=== PATIENT | female | born 1955 | race Caucasian/White ===

== ENCOUNTER 2019-12-06 14:30 | Emergency (ER) | payer MEDICARE, BC ==
[2019-12-06 14:42] VITALS: RESP 18
--- NOTE | 2019-12-06 14:44 | ED ---
Fall HPI - General Chief Complaint: Fall Stated Complaint: possible concussion 11 days ago Time Seen by Provider: 12/06/19 14:43 Source: patient Mode of arrival: ambulatory - History of Present Illness Initial Comments: Patient is 64-year-old female presenting to emergency Department with the chief complaint of a fall. Patient states the incident occurred about 11 days ago, wh en she tried to kick a ball and she lost her balance falling backwards. Patient reports fell on her Botox. States she is sore at her tailbone but denies any swelling to the region. He states there is pain whenever she attempts to sit down. Patient also reports feeling groggy since the fall. States she occasionally takes more time for her to think of the right word. Denies any one-sided weakness or paresthesias. Denies any visual changes or headaches. States she is not on blood thinners. She denies loss of consciousness time of injury. - Related Data Allergies Allergy/AdvReac Type Severity Reaction Status Date / Time pantoprazole [From Protonix] Allergy Rash/Hives Verified 12/06/19 14:42 Review of Systems ROS Statement: Those systems with pertinent positive or pertinent negative responses have been documented in the HPI. ROS Other: All systems not noted in ROS Statement are negative. Past Medical History Past Medical History: Thyroid Disorder Additional Past Medical History / Comment(s): Myesthenia Gravis History of Any Multi-Drug Resistant Organisms: None Reported Past Surgical History: Cholecystectomy, Hysterectomy, Tonsillectomy Additional Past Surgical History / Comment(s): Thyroidectomy, breast reconstruction Past Psychological History: No Psychological Hx Reported Smoking Status: Never smoker Past Alcohol Use History: None Reported Past Drug Use History: None Reported General Exam Limitations: no limitations General appearance: alert, in no apparent distress Head exam: Present: atraumatic, normocephalic, normal inspection. Absent: other (Negative Whaley sign, negative hemotympanum, negative raccoon eyes.) Eye exam: Present: normal appearance, PERRL, EOMI Pupils: Present: normal accommodation ENT exam: Present: normal exam, normal oropharynx, mucous membranes moist Neck exam: Present: normal inspection, full ROM. Absent: tenderness Respiratory exam: Present: normal lung sounds bilaterally. Absent: respiratory distress, wheezes, rales Cardiovascular Exam: Present: regular rate, normal rhythm, normal heart sounds GI/Abdominal exam: Present: soft. Absent: distended, tenderness, guarding Extremities exam: Present: normal inspection, full ROM Back exam: Present: normal inspection, full ROM, tenderness (Mild tenderness at the coccyx). Absent: CVA tenderness (R), CVA tenderness (L) Neurological exam: Present: alert, oriented X3, CN II-XII intact, normal gait Psychiatric exam: Present: normal affect, normal mood Skin exam: Present: warm, dry, intact, normal color Course Vital Signs 12/06/19 12/06/19 14:35 16:20 Temperature 97.9 F 98.5 F Pulse Rate 89 81 Respiratory 18 18 Rate Blood Pressure 150/85 148/80 O2 Sat by Pulse 97 98 Oximetry Medical Decision Making - Medical Decision Making Patient is 64-year-old female resenting to emergency Department with a chief complaint of fall. Incident occurred about 11 days ago. Exam she has some coccygeal pain. Also pain with sitting. Neurological examination is unremarkable. Brain CT shows no signs of intracranial hemorrhage, fractures or dislocations. X-ray of the coccyx reveals no signs of acute injury but the distal end of the coccyx cannot be identified. I suspect the patient suffered a mild concussion when the incident occurred and is not experiencing occasional mild postconcussive symptoms. Return parameters were thoroughly discussed the patient was understanding and agreeable. Case discussed with physician. Disposition Clinical Impression: Fall, Coccygeal pain Disposition: HOME SELF-CARE Condition: Stable Instructions (If sedation given, give patient instructions): Fall Prevention (ED) Additional Instructions: Follow-up with your primary care. Return to emergency department if symptoms worsen. Is patient prescribed a controlled substance at d/c from ED?: No Referrals: Nonstaff,Physician [Primary Care Provider] - 1-2 days Time of Disposition: 16:10
--- NOTE | 2019-12-06 15:41 | XR ---
EXAMINATION TYPE: XR sacrum coccyx DATE OF EXAM: 12/06/2019 COMPARISON: None HISTORY: Fall, pain TECHNIQUE: Three-view sacrum and coccyx FINDINGS: Sacroiliac joints have mild degenerative change. No acute fractures identified. The distal coccyx is poorly visualized is loss of the cortex. Correlate for prior trauma or osteomyelitis. IMPRESSION: 1. No displaced fractures evident. 2. Distal coccyx and distal coccygeal cortex are not identified. Correlate for prior surgery or osteo myelitis.
--- NOTE | 2019-12-06 15:45 | CT ---
EXAMINATION TYPE: CT brain jas wo con DATE OF EXAM: 12/06/2019 COMPARISON: None HISTORY: 64-year-old female Fall 11 days ago. Posterior head injury. Neck pain. CT DLP: 1289.2 mGycm Automated exposure control for dose reduction was used. Technique: Examination of the head was done in axial plane without intravenous contrast. Coronal and sagittal reconstructions performed. CT of the cervical spine was obtained in axial plane without intravenous injection of contrast mater ial. Coronal and sagittal reformatted images were obtained from the axial views for evaluation of f ractures, spinal alignment and canal. FINDINGS: Head: There is no evidence of acute intracranial hemorrhage, acute ischemic changes, mass, mass-effect, or extra-axial fluid collection. There is no effacement of cerebral sulci or basal subarachnoid cister ns. There is no hydrocephalus. There is no midline shift. Hays-white matter distinction is preserv ed. Mild bifrontal atrophy. Mild patchy white matter hypodensity suggesting changes of chronic small vess el ischemic disease. Paranasal sinuses and mastoid air cells well pneumatized. Orbits and globes are intact. No calvarial fracture. Cervical spine: No craniocervical junction anomaly, predental space widening, or prevertebral soft tissue swelling. Moderate to advanced disc/endplate degenerative change at C4-C7 levels. Disc osteophyte complex at C4 -C5 causes a mild to moderate spinal canal stenosis. Reversal of the normal cervical lordosis but with preserved alignment. Advanced hypertrophic uncovertebral joint arthropathy throughout. Advanced hypertrophic facet arthrop athy particularly at C7-T1. No acute fracture of the cervical spine. Variable mild neuroforaminal narrowing, moderate on the right at C4-C5. Sagittal and coronal reformatted images confirm above findings. COMBINED IMPRESSION: 1. Mild bifrontal atrophy and mild changes of chronic small vessel ischemic disease. No acute intracr anial abnormality seen. 2. No acute fracture or malalignment of the cervical spine. Moderate spondylotic change as above.
[2019-12-06 16:22] VITALS: BP 148/80; PULSE 81; TEMP 98.5
== END 2019-12-06 16:20 | disposition home or self-care (01) ==
LOC: EC 14:30
DX: S39.82XA Other specified injuries of lower back, initial encounter (principal); S09.90XA Unspecified injury of head, initial encounter; Z88.8 Allergy status to other drugs, medicaments and biological substances; W18.39XA Other fall on same level, initial encounter; Y93.89 Activity, other specified
CPT/HCPCS: 70450; 72125; 72220; 99284

== ENCOUNTER → 2021-08-03 | Outpatient (CLI) | payer MEDICARE, BC ==
--- NOTE | 2021-08-03 13:33 | US ---
EXAMINATION TYPE: US thyroid st tissue head/neck DATE OF EXAM: 08/03/2021 COMPARISON: NONE CLINICAL HISTORY: 66-year-old female Z85.850 Personal history of malignant neoplasm. TECHNIQUE: Multiple sonographic images of the thyroidectomy bed are obtained. FINDINGS: MEASUREMENTS: GLAND SIZE: Patient had thyroidectomy in 2014. She believes there to be residual tissue. NODULES RIGHT: # of nodules measured on right: 0 LEFT: # of nodules measured on left: 0 ISTHMUS: # of nodules measured within isthmus: 0 Bilateral neck scanned, no evidence of lymphadenopathy. IMPRESSION: Status post thyroidectomy. No appreciable residual tissue in the thyroidectomy bed. No suspicious nod ules. Ongoing appropriate follow-up as clinically indicated.
== END | disposition home or self-care (01) ==
LOC: RADUSWWP 10:39
DX: Z08 Encounter for follow-up examination after completed treatment for malignant neoplasm (principal); Z85.850 Personal history of malignant neoplasm of thyroid
CPT/HCPCS: 76536

== ENCOUNTER 2022-05-02 11:34 | Emergency (ER) | payer MEDICARE ==
--- NOTE | 2022-05-02 12:30 | ED ---
General Adult HPI - General Chief complaint: Recheck/Abnormal Lab/Rx Stated complaint: Hypertension Time Seen by Provider: 05/02/22 11:45 Source: patient, RN notes reviewed, old records reviewed Mode of arrival: ambulatory Limitations: no limitations - History of Present Illness Initial comments: This is a 66-year-old female with past medical history significant for hypertension. Patient states her blood pressure is elevated and recently was switched from atenolol to metoprolol and her blood pressures been running systolically in the 180s. Patient states she's had no symptoms currently no chest pain or palpitations or difficulty breathing. Patient denies any headache patient denies any blurred vision. Patient states she's just concerned because he continues to be elevated. Patient states yesterday she had a little chest tightness that lasted for short period time but hasn't had it occur since - Related Data Allergies Allergy/AdvReac Type Severity Reaction Status Date / Time pantoprazole [From Protonix] Allergy Rash/Hives Verified 05/02/22 11:48 Review of Systems ROS Statement: Those systems with pertinent positive or pertinent negative responses have been documented in the HPI. ROS Other: All systems not noted in ROS Statement are negative. Past Medical History Past Medical History: Hypertension, Thyroid Disorder Additional Past Medical History / Comment(s): Myesthenia Gravis History of Any Multi-Drug Resistant Organisms: None Reported Past Surgical History: Cholecystectomy, Hysterectomy, Tonsillectomy Additional Past Surgical History / Comment(s): Thyroidectomy, breast reconstruction Past Psychological History: No Psychological Hx Reported Past Alcohol Use History: None Reported Past Drug Use History: None Reported General Exam - General Exam Comments Initial Comments: GENERAL: Patient is well-developed and well-nourished. Patient is nontoxic and well- hydrated and is in no acute distress. ENT: Neck is soft and supple. No significant lymphadenopathy is noted. Oropharynx is clear. Moist mucous membranes. Neck has full range of motion without eliciting any pain. EYES: The sclera were anicteric and conjunctiva were pink and moist. Extraocular movements were intact and pupils were equal round and reactive to light. Eyelids were unremarkable. PULMONARY: Unlabored respirations. Good breath sounds bilaterally. No audible rales rhonchi or wheezing was noted. CARDIOVASCULAR: There is a regular rate and rhythm without any murmurs gallops or rubs. ABDOMEN: Soft and nontender with normal bowel sounds. SKIN: Skin is clear with no lesions or rashes and otherwise unremarkable. NEUROLOGIC: Patient is alert and oriented x3. Cranial nerves II through XII are grossly intact. Motor and sensory are also intact. Normal speech, volume and content. Symmetrical smile. MUSCULOSKELETAL: Normal extremities with adequate strength and full range of motion. LYMPHATICS: No significant lymphadenopathy is noted PSYCHIATRIC: Normal psychiatric evaluation. Limitations: no limitations Course Vital Signs 05/02/22 05/02/22 11:43 13:18 Temperature 98.0 F Pulse Rate 69 65 Respiratory 18 16 Rate Blood Pressure 161/88 152/92 O2 Sat by Pulse 98 97 Oximetry Medical Decision Making - Medical Decision Making EKG is interpreted by me. EKG shows a sinus rhythm at 62 bpm DC interval 163 QRSs 85 Q-T intervals 14 QTC is 423. Patient's EKG shows no ST segment el evation or depression. I interpret the chest x-ray. Chest x-ray shows no acute abnormalities - Lab Data Result diagrams: 05/02/22 12:33 05/02/22 12:33 Lab Results 05/02/22 05/02/22 Range/Units 12:33 12:33 WBC 5.6 (3.8-10.6) k/uL RBC 5.18 (3.80-5.40) m/uL Hgb 15.5 (11.4-16.0) gm/dL Hct 44.3 (34.0-46.0) % MCV 85.5 (80.0-100.0) fL MCH 29.9 (25.0-35.0) pg MCHC 34.9 (31.0-37.0) g/dL RDW 13.5 (11.5-15.5) % Plt Count 116 L (150-450) k/uL MPV 9.0 Neutrophils % 66 % Lymphocytes % 23 % Monocytes % 7 % Eosinophils % 2 % Basophils % 1 % Neutrophils # 3.7 (1.3-7.7) k/uL Lymphocytes # 1.3 (1.0-4.8) k/uL Monocytes # 0.4 (0-1.0) k/uL Eosinophils # 0.1 (0-0.7) k/uL Basophils # 0.0 (0-0.2) k/uL Sodium 139 (137-145) mmol/L Potassium 4.2 (3.5-5.1) mmol/L Chloride 109 H (98-107) mmol/L Carbon Dioxide 25 (22-30) mmol/L Anion Gap 5 mmol/L BUN 19 H (7-17) mg/dL Creatinine 0.61 (0.52-1.04) mg/dL Est GFR (CKD-EPI)AfAm >90 (>60 ml/min/1.73 sqM) Est GFR (CKD-EPI)NonAf >90 (>60 ml/min/1.73 sqM) Glucose 92 (74-99) mg/dL Calcium 8.2 L (8.4-10.2) mg/dL Magnesium 2.2 (1.6-2.3) mg/dL Total Bilirubin 0.7 (0.2-1.3) mg/dL AST 41 H (14-36) U/L ALT 50 H (4-34) U/L Alkaline Phosphatase 94 (38-126) U/L Total Protein 6.0 L (6.3-8.2) g/dL Albumin 4.1 (3.5-5.0) g/dL Disposition Clinical Impression: Essential hypertension Disposition: HOME SELF-CARE Condition: Good Instructions (If sedation given, give patient instructions): Hypertension (ED) Additional Instructions: Patient can increase her metoprolol to 2 pills every night and document on her blood pressure charting so the primary medical care doctor could follow what she has done relative to her blood pressure. Is patient prescribed a controlled substance at d/c from ED?: No Referrals: Geoff Tracey MD [Primary Care Provider] - 1-2 days Time of Disposition: 13:35
[2022-05-02 12:56] LABS: Basophils % (A) 1 %; Eosinophils # (A) 0.1 k/uL (0-0.7); Eosinophils % (A) 2 %; HCT 44.3 % (34.0-46.0); HGB 15.5 gm/dL (11.4-16.0); Lymphocytes # (A) 1.3 k/uL (1.0-4.8); Lymphocytes % (A) 23 %; MCH 29.9 pg (25.0-35.0); MCHC 34.9 g/dL (31.0-37.0); MCV 85.5 fL (80.0-100.0); Monocytes # (A) 0.4 k/uL (0-1.0); Monocytes % (A) 7 %; Neutrophils # (A) 3.7 k/uL (1.3-7.7); Neutrophils % (A) 66 %; Platelet Count 116 k/uL (150-450); RBC 5.18 m/uL (3.80-5.40); RDW 13.5 % (11.5-15.5); WBC 5.6 k/uL (3.8-10.6)
--- NOTE | 2022-05-02 13:02 | XR ---
EXAMINATION TYPE: XR chest 2V DATE OF EXAM: 05/02/2022 12:37 PM COMPARISON: Chest radiographs from 05/02/2022 TECHNIQUE: XR chest 2V Frontal and lateral views of the chest. CLINICAL INDICATION:Female, 66 years old with history of Difficulty breathing ; FINDINGS: Lungs/Pleura: There is flattening of the diaphragm with increased lucency of the lungs. No evidence o f pneumothorax, pleural effusion or focal consolidation. Pulmonary vascularity: Unremarkable. Heart/mediastinum: Cardiomediastinal silhouette is unremarkable. Musculoskeletal: No acute osseous pathology. Surgical clips project over the mediastinum and right ch est. IMPRESSION: 1. No acute cardiopulmonary disease process. 2. COPD changes.
[2022-05-02 13:09] LABS: ALT 50 U/L (4-34); AST 41 U/L (14-36); African American GFR (CKD) >90 (>60 ml/min/1.73 sqM); Albumin 4.1 g/dL (3.5-5.0); Alkaline Phosphatase 94 U/L (38-126); Anion Gap 5 mmol/L; Blood Urea Nitrogen 19 mg/dL (7-17); Calcium 8.2 mg/dL (8.4-10.2); Carbon Dioxide 25 mmol/L (22-30); Chloride 109 mmol/L (98-107); Glucose 92 mg/dL (74-99); Magnesium 2.2 mg/dL (1.6-2.3); Non-African American GFR(CKD) >90 (>60 ml/min/1.73 sqM); Potassium 4.2 mmol/L (3.5-5.1); Sodium 139 mmol/L (137-145); Total Bilirubin 0.7 mg/dL (0.2-1.3)
[2022-05-02 13:18] VITALS: BP 152/92; PULSE 65; RESP 16
[2022-05-02 13:50] VITALS: TEMP 98
== END 2022-05-02 13:49 | disposition home or self-care (01) ==
LOC: EC 11:34
DX: I10 Essential (primary) hypertension (principal); E07.9 Disorder of thyroid, unspecified
CPT/HCPCS: 36415; 71046; 80053; 83735; 85025; 93005; 99284

== ENCOUNTER → 2023-11-23 | Outpatient (CLI) | payer MEDICARE ==
--- NOTE | 2023-11-24 12:59 | BD ---
EXAMINATION TYPE: Axial Bone Density DATE OF EXAM: 11/23/2023 CLINICAL HISTORY: 68 years old Female. ICD-10 CODE: M81.0 AGE-RELATED OSTEOPOROSIS W/O CURRENT PATHO LO Height: 5 ft 2 in Weight: 117 FRAX RISK QUESTIONS: Alcohol (3 or more units per day): no Family History (Parent hip fracture): no Glucocorticoids (More than 3mos): no (Ex: prednisone, prednisolone, methylprednisolone, dexamethasone, and hydrocortisone). History of Fracture in Adulthood: no Secondary Osteoporosis: 1. Type 1 Diabetes: no 2. Hyperthyroidism: no 3. Menopause before 45: yes 4. Malnutrition: no 5. Chronic liver disease: no Rheumatoid Arthritis: no Current Tobacco Use: no RISK FACTORS HISTORY OF: Surgery to Spine/Hip(right/left)/Wrist (right/left): no MEDICATIONS: Thyroid Medications: yes Which medication: [employer] THYROID How Lon years Osteoporosis Medications: none EXAM MEASUREMENTS: Bone mineral densitometry was performed using the [employer] System. Bone mineral density as measured about the Lumbar spine is: ----- L1-L4(G/cm2): 0.838 T Score Values are as follows: ----- L1: -3.2 ----- L2: -2.5 ----- L3: -2.4 ----- L4: -3.3 ----- L1-L4: -2.9 Z Score Values are as follows: ----- L1: -1.1 ----- L2: -0.5 ----- L3: -0.4 ----- L4: -1.2 ----- L1-L4: -0.8 baseline Bone mineral density about the R hip (g/cm2): 0.809 Bone mineral density about the L hip (g/cm2): 0.805 T Score values are as follows: -----R Neck: -1.6 -----L Neck: -1.7 -----R Total: -1.8 -----L Total: -1.6 Z Score values are as follows: -----R Neck: 0.2 -----L Neck: 0.3 -----R Total: -0.1 -----L Total: 0.1 baseline FRAX%s: The graph provided illustrates a 9.4 % chance for a major osteoporotic fx and a 1.6% chance f or the hips probability for fx in 10 years time. IMPRESSION: Osteoporosis (T Score less than -2.5). There is increased fracture risk and therapy is usually indicated based on age. Re-Screen 1-2 years. NOTE: T-SCORE=SD OF THE YOUNG ADULT MEAN.
== END | disposition home or self-care (01) ==
LOC: RADBDWWP 12:58
PROVIDERS: ATTEND Family Medicine
DX: M81.0 Age-related osteoporosis without current pathological fracture (principal); M85.89 Other specified disorders of bone density and structure, multiple sites; Z78.0 Asymptomatic menopausal state
CPT/HCPCS: 77080

== ENCOUNTER → 2024-08-24 | Outpatient (CLI) | payer MEDICARE ==
[2024-08-24 12:43] LABS: African American GFR (CKD) >90 (>60 ml/min/1.73 sqM); Blood Urea Nitrogen 21 mg/dL (7-17); Non-African American GFR(CKD) >90 (>60 ml/min/1.73 sqM)
--- NOTE | 2024-08-24 13:48 | CT ---
EXAMINATION TYPE: CT adrenal glands wo/w con CT DLP: 664 mGycm, Automated exposure control for dose reduction was used. 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 Oral contrast was administered. Coronal and sagittal reformats were perform ed. FINDINGS: LOWER CHEST: Unremarkable ABDOMEN LIVER: Several scattered cysts with the largest in the posterior right hepatic lobe measuring up to 1 .2 cm. There is a nonenhancing cyst just inferior to this with more lobulated appearance. Peripherall y calcified cystic lesion within the medial right hepatic lobe measuring up to 3.1 cm (series 3, imag e 15). No enhancement. GALLBLADDER AND BILE DUCTS: Unremarkable. PANCREAS: Unremarkable. SPLEEN: Unremarkable. ADRENAL GLANDS: Unremarkable. No discrete lesion. KIDNEYS AND URETERS: No evidence of hydronephrosis or renal calculus. The kidneys enhance symmetrical ly. Subcentimeter hypodense focus within the inferior pole of the right kidney superior pole of the l eft kidney favored to represent cysts. Contrast is demonstrated within both collecting systems and vi sualized ureters on delayed phase. STOMACH AND BOWEL: Stomach and duodenum are unremarkable. Enteric contrast reaches the mid small janice l. Stool is present within the visualized colon. No focal bowel wall thickening or surrounding inflam matory changes. No evidence of bowel obstruction. PERITONEUM: No evidence of pneumoperitoneum or free fluid. VASCULATURE: No evidence of aortic aneurysm. MUSCULOSKELETAL: No acute osseous abnormalities. Mild retrolisthesis of L2 on L3. 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 LYMPH NODES: No evidence for lymphadenopathy. SOFT TISSUE/ABDOMINAL WALL: Multiple calcifications within the anterior abdominal wall. IMPRESSION: 1. No evidence of adrenal mass. 2. Several hepatic cysts with a medial right hepatic lobe peripherally calcified cyst without enhance ment. Etiology hydatid cyst versus epithelial cyst versus other. Consider further evaluation with MRI abdomen liver mass protocol. [facility], , 08/24/2024 1:45 PM
== END | disposition home or self-care (01) ==
LOC: RADCTMAIN 12:00
PROVIDERS: ATTEND Specialist
DX: K76.89 Other specified diseases of liver (principal); E28.1 Androgen excess; E27.40 Unspecified adrenocortical insufficiency
CPT/HCPCS: 82565; 84520; 36415; 74170; Q9967